=== PATIENT | male | born 1960 | race Caucasian/White ===

== ENCOUNTER 2020-02-19 18:14 | Observation (INO) | payer MEDICARE ==
[~2020-02-19] VITALS: Ht 182.9 cm; Wt 114.4 kg
[~2020-02-19 18:14] MED LIST: DIGOX250 MCG PO; DILTIAZEM 24HR180 M1 PO; ELIQUIS2.5 MG PO; GLUCOPHAGE1000 MG PO; IMDUR ER TAB 6060 MG PO; LIPITOR TAB 2020 MG PO; METOPROLOL TART50 MG PO; NITROSTAT0.4 MG SL; NORCO 5-325 TA1 EACH PO; NOVOLOG100 UNIT/1 SC; PERCOCET 5-3251 EACH PO; XTANDI40 MG PO; ZESTRIL2.5 MG PO
[2020-02-19] MEDS ORDERED: IMDUR ER TAB 3030 MG PO (21:08)
[2020-02-19] MEDS ORDERED: ZOFRAN ODT 4 MG4 MG PO (21:08)
[2020-02-19] MEDS ORDERED: ZYTIGA250 MG PO (21:09)
[2020-02-20] MEDS ORDERED: LOPRESSOR 50 MG50 MG PO (13:39)
== END 2020-02-20 14:40 | disposition home or self-care (01) ==
LOC: MED SURG 4 20:22
PROVIDERS: ADMIT Internal Medicine
DX: R07.89 Other chest pain (principal); I25.10 Atherosclerotic heart disease of native coronary artery without angina pectoris; E11.9 Type 2 diabetes mellitus without complications; I11.0 Hypertensive heart disease with heart failure; I50.20 Unspecified systolic (congestive) heart failure; I48.0 Paroxysmal atrial fibrillation; Z85.46 Personal history of malignant neoplasm of prostate; Z79.4 Long term (current) use of insulin; Z79.899 Other long term (current) drug therapy
CPT/HCPCS: 36415; 80061; 82550; 82553; 82962; 84484; 93005; 96374; 96376; G0378; G0379; J2270

== ENCOUNTER → 2020-11-27 | Outpatient (CLI) | payer MEDICARE ==
[~2020-11-27] MED LIST changes: +IMDUR ER TAB 3030 MG PO; +LOPRESSOR 50 MG50 MG PO; +ZOFRAN ODT 4 MG4 MG PO; +ZYTIGA250 MG PO
[2020-11-27 15:57] LABS: HEMOGLOBIN 7.5 gm/dl (14.0-17.5)
== END ==
LOC: LAB 15:25
PROVIDERS: Internal Medicine Hematology & Oncology
DX: C61 Malignant neoplasm of prostate (principal)
CPT/HCPCS: 36415; 85014; 85018; 86850; 86900; 86901; 86920

== ENCOUNTER → 2021-01-02 | Outpatient (CLI) | payer MEDICARE | LOC: OPSV 09:42 | DX: D64.9 Anemia, unspecified (principal); C61 Malignant neoplasm of prostate | CPT/HCPCS: 36430; J7050 ==

== ENCOUNTER → 2021-03-05 | Outpatient (CLI) | payer MEDICARE ==
[2021-03-05 15:22] LABS: HEMOGLOBIN 8.1 gm/dl (14.0-17.5); RED BLOOD COUNT 2.59 M/UL (4.20-5.50); WHITE BLOOD COUNT 5.2 K/UL (4.5-11.0)
== END ==
LOC: OPSV 08:00 → LAB 14:57
PROVIDERS: Internal Medicine Hematology & Oncology
DX: C61 Malignant neoplasm of prostate (principal)
CPT/HCPCS: 36415; 85027; 86850; 86900; 86901; 86920; P9016

== ENCOUNTER → 2021-03-06 | Outpatient (CLI) | payer MEDICARE ==
[~2021-03-06] VITALS: Ht 182.9 cm; Wt 96.6 kg
== END ==
LOC: OPSV 07:41
DX: D64.9 Anemia, unspecified (principal); C61 Malignant neoplasm of prostate
CPT/HCPCS: 36430; J7050

== ENCOUNTER → 2021-04-25 | Outpatient (CLI) | payer MEDICARE ==
[2021-04-25 15:45] LABS: HEMOGLOBIN 7.3 gm/dl (14.0-17.5)
== END ==
LOC: LAB 14:55
PROVIDERS: Internal Medicine Hematology & Oncology
DX: D64.9 Anemia, unspecified (principal)
CPT/HCPCS: 36415; 85014; 85018; 86850; 86900; 86901; 86920; P9016

== ENCOUNTER → 2021-06-19 | Outpatient (CLI) | payer MEDICARE ==
[2021-06-19 13:10] LABS: HEMOGLOBIN 6.8 gm/dl (14.0-17.5)
== END ==
LOC: LAB 12:34
PROVIDERS: Internal Medicine Hematology & Oncology
DX: D64.9 Anemia, unspecified (principal); C61 Malignant neoplasm of prostate
CPT/HCPCS: 36415; 85014; 85018; 86850; 86900; 86901; 86920; J7050; P9016

== ENCOUNTER → 2021-06-20 | Outpatient (CLI) | payer MEDICARE ==
[~2021-06-20] VITALS: Ht 182.9 cm; Wt 109.8 kg
== END ==
LOC: OPSV 08:00
DX: C61 Malignant neoplasm of prostate (principal); D63.0 Anemia in neoplastic disease
CPT/HCPCS: 36430

== ENCOUNTER → 2021-07-17 | Outpatient (CLI) | payer MEDICARE ==
[2021-07-17 13:38] LABS: HEMOGLOBIN 6.9 gm/dl (14.0-17.5)
== END ==
LOC: LAB 12:30
PROVIDERS: Internal Medicine Hematology & Oncology
DX: C61 Malignant neoplasm of prostate (principal)
CPT/HCPCS: 36415; 85014; 85018; 86850; 86900; 86901; 86920; P9016